=== PATIENT | female | born 1985 | race Caucasian/White ===

== ENCOUNTER 2022-02-13 14:17 | Outpatient (REF) | payer OTHER, SELFPAY ==
[2022-02-13 14:28] LABS: MANUAL DIFF FLAG NO
[2022-02-13 14:37] LABS: Strep A Nucleic Acid Negative (Negative)
[2022-02-13 14:53] LABS: Basophils Percent Auto 0.3 % (0-2); Eosinophils Absolute Auto 0.7 X10*3/uL (0.0-0.4); Eosinophils Percent Auto 6.4 % (0-4); Hematocrit 42.6 % (37.0-47.0); Hemoglobin 13.9 g/dl (12.0-16.0); Imm Gran Abs Auto 0.06 X10*3/uL (0.00-0.03); Imm Gran Pct Auto 0.6 % (0.0-0.4); Lymphocytes Absolute Auto 2.3 X10*3/uL (1.2-4.9); Lymphocytes Percent Auto 22.5 % (20-40); Mean Corpuscular HGB Conc 32.6 g/dl (31.0-35.0); Mean Corpuscular Hemoglobin 28.2 pg (27.0-33.0); Mean Corpuscular Volume 86.4 fL (80.0-98.0); Mean Platelet Volume 8.9 fL (9.4-12.3); Monocytes Absolute Auto 0.8 X10*3/uL (0.1-1.2); Monocytes Percent Auto 7.8 % (2-11); Neutrophils Absolute Auto 6.5 x10*3/uL (2.0-8.3); Neutrophils Percent Auto 62.4 % (45-73); Platelet Count 271 X10*3/uL (160-400); Red Blood Count 4.93 X10*6/uL (4.20-5.50); Red Cell Distribution Width 12.1 % (11.0-16.0); White Blood Count 10.4 X10*3/uL (4.8-10.8)
[2022-02-13 15:11] LABS: Alanine Aminotransferase 66 U/L (0-31); Albumin Level 4.6 g/dL (3.5-5.0); Alkaline Phosphatase 146 U/L (39-117); Anion Gap 12 (12-20); Aspartate Amino Transferase 42 U/L (5-31); Bilirubin Total 0.4 mg/dL (0.0-1.0); Blood Urea Nitrogen 14 mg/dL (9-16); C Reactive Protein 1.72 mg/dL (< or = 0.50); Calcium 9.5 mg/dL (8.4-10.2); Carbon Dioxide 24 mmol/L (22-29); Chloride 110 mmol/L (96-108); Estimated Glomerular Filt Rate > 60; Glucose Random 95 mg/dL (60-115); Potassium 4.2 mmol/L (3.3-5.1); Sodium 142 mmol/L (135-145); Total Protein 7.4 g/dL (6.5-8.0)
[2022-02-13 15:32] LABS: Free T4 (Free Thyroxine) 0.83 ng/dL (0.71-1.85); Thyroid Stimulating Hormone 0.54 uIU/mL (0.32-4.0)
== END 2022-02-13 14:18 | disposition home or self-care (01) ==
LOC: HO.LAB 14:17
PROVIDERS: PCP Internal Medicine; Visit Provider Internal Medicine
DX: R63.5 Abnormal weight gain (principal); E04.1 Nontoxic single thyroid nodule
CPT/HCPCS: 36415; 80053; 84439; 84443; 85025; 86140; 87071; 87651

== ENCOUNTER 2022-02-14 13:00 | Outpatient (REF) | payer OTHER, SELFPAY ==
--- NOTE | ~2022-02-14 | US_ITS ---
EXAMINATION: US THYROID CLINICAL INFORMATION: Thyromegaly COMPARISON: None TECHNIQUE: Linear transducer grayscale and color Doppler examination with attention to the region of the thyroid. FINDINGS: SIZE: Measurements of the thyroid lobes and nodules are given in sagittal, anteroposterior and transverse dimensions respectively. Right Thyroid Lobe: 6.02 x 2.71 x 2.79 cm, volume 23.8 mL. Parenchyma: The gland echotexture is heterogeneous. Thyroid vascularity is normal. Left Thyroid Lobe: 5.48 x 1.54 x 2.05 cm, volume 9.02 mL. Parenchyma: The gland echotexture is homogeneous. Thyroid vascularity is normal. Isthmus: 0.34 cm in maximum AP dimension. Estimated total number of nodules greater than or equal to 1 cm: 2. [employer]ist nodules are described as follows: 1. Location: Right lower pole. Size: 1.9 x 1.8 x 1.7 cm, volume 3.16 mL. Nodule characteristics: Composition: Mixed cystic and solid (1). Echogenicity: Isoechoic (1). Shape: Taller than wide (3). Margins: Smooth (0). Echogenic Foci: None (0). ACR TI-RADS total points: 5 ACR TI-RADS category: 4 2. Location: Right upper. Size: 3.5 x 2.8 x 2.8 cm, volume 14.4 mL. Nodule characteristics: Composition: Solid/almost completely solid (2). Echogenicity: Isoechoic (1). Shape: Not taller than wide (0). Margins: Smooth (0). Echogenic Foci: None (0). ACR TI-RADS total points: 3 ACR TI-RADS category: 3 NODES: No lymphadenopathy is seen in the tissue surrounding the thyroid gland. US/US thyroid IMPRESSION: 1. 2 right thyroid lobe nodules are seen, each of which meets REJI biopsy criteria and is amenable to ultrasound-guided biopsy, if clinically indicated and not already performed. 2. There is an asymmetric goiter, right lobe greater than left. 3. There is heterogeneous thyroid echotexture, which can be associated with thyroiditis. ACR TI-RADS RECOMMENDATION REFERENCE: Ultrasound-guided fine-needle aspiration, followup ultrasound, no further follow up. * TR1 (0 point) and TR 2 (2 points): No FNA or follow up * TR3 (3 points): FNA if more than or equal to 2.5 cm in maximum dimension, followup ultrasound in 1, 3 and 5 years if 1.5 to 2.4 cm in maximum dimension. * TR4 (4-6 points): FNA if more than or equal to 1.5 cm in maximum dimension, followup ultrasound in 1, 2, 3 and 5 years if 1 to 1.4 cm in maximum dimension. * TR5 (more than or equal to 7 points): FNA if more than or equal to 1 cm in maximum dimension, followup ultrasound every year for 5 years if 0.5 to 0.9 cm in maximum dimension. * TR3, TR4 or TR5 nodules that are below the size threshold for follow up receive no follow up.
== END 2022-02-14 13:01 | disposition home or self-care (01) ==
LOC: HO.US 13:00
PROVIDERS: Visit Provider Internal Medicine
DX: E04.2 Nontoxic multinodular goiter (principal)
CPT/HCPCS: 76536

== ENCOUNTER 2022-03-28 11:38 | Emergency (ER) | payer OTHER, SELFPAY ==
--- NOTE | ~2022-03-28 | XR_ITS ---
EXAMINATION: XR LUMBOSACRAL SPINE CLINICAL INFORMATION: Severe low back pain COMPARISON: MRI thoracic spine TECHNIQUE: Three views of the lumbosacral spine. FINDINGS: 5 nonrib-bearing lumbar-type vertebral bodies. No acute visible fracture or dislocation. Slight levocurvature of the mid lumbar spine. Cortical irregularity involving the anterior column of T11 vertebral body greatest at its inferior margin nonspecific though suggesting degenerative changes, increased from prior cross-sectional imaging. Mild multilevel degenerative changes osteophyte formation lower lumbar spine facet arthropathy. Vertebral body heights and disc spaces are otherwise maintained. Posterior elements are intact. Paraspinal soft tissues are unremarkable. Visualized bowel gas is unremarkable. Pelvic phleboliths are noted. XR/XR lumbar spine 2-3V IMPRESSION: 1. No acute visible fracture or dislocation. 2. Slight levocurvature of the mid lumbar spine. Cortical irregularity involving the anterior column of T11 vertebral body greatest at its inferior margin nonspecific though suggesting degenerative changes, increased from prior cross-sectional imaging. 3. Mild multilevel degenerative changes.
[2022-03-28 11:49] VITALS: BP 112/71; PULSE 72; RESP 18; TEMP 37; O2SAT 98; BMI 27.4
[2022-03-28 12:02] VITALS: BP 100/74; PULSE 68; O2SAT 98
--- NOTE | 2022-03-28 12:03 | ED_ITS ---
HPI - Back Pain/Injury General Chief Complaint: Back Pain/Injury Stated Complaint: GENNY BACK PAIN,NO NEW INJURY PER EMS Time Seen by Provider: 03/28/22 11:55 Source: patient and EMS Mode of arrival: EMS Limitations: no limitations History of Present Illness HPI Narrative: 36 yo female presents to the ER for evaluation of severe low back pain worsening over the last couple of days. She reports history of low back pain with history of degenerative disc disease in her lumbar area. She used to go to physical therapy for this and had good results. She states a few days ago she was scrubbing the floors and doing a lot of physical activity with her 3 small children. She has had worsening pain for the last 48 hours. Today she could not even walk because of the pain. She has been taking ibuprofen with minimal relief. She denies any weakness, numbness, tingling of her legs, no bowel or bladder incontinence. She reports the pain is worse when she stands and walks. She is comfortable when she is lying down with her legs flexed. MD elicited complaint: back pain Pertinent past history: prior back pain Timing: constant and progressively worsening Severity: severe Similar Symptoms Previously: Yes Quality: aching and spasming Location: right lower back and left lower back Radiation: none Exacerbating factors: movement, walking and coughing/sneezing Relieving factors: immobilization and supine Context: while lifting, turning/twisting and bending Associated symptoms: denies other symptoms Work related injury: No Related Data Previous Rx's Medication Instructions Recorded cyclobenzaprine 10 mg tablet 10 mg PO TID PRN muscle spasm #10 03/28/22 tabs ibuprofen 600 mg tablet 600 mg PO Q8H PRN pain #10 tabs 03/28/22 lidocaine 5 % topical patch 1 patch topical DAILY #15 ea 03/28/22 oxycodone 5 mg tablet 5 mg PO Q8H PRN pain #6 tabs 03/28/22 Allergies Allergy/AdvReac Type Severity Reaction Status Date / Time No Known Allergies Allergy Unverified 04/20/20 16:40 Review of Systems Review of Systems: Constitutional: No Fever, No Chills ENT/Mouth: No sore throat, No Rhinorrhea, No Swallowing Difficulty Eyes: No Eye Pain, No Swelling, No Redness Cardiovascular: No Chest Pain, No SOB, No Orthopnea, No Edema Respiratory: No Cough, No Sputum, No Wheezing, No dyspnea Gastrointestinal: No Nausea, No Vomiting, No Diarrhea, No abdominal Pain Genitourinary: No Dysuria, No Urinary Frequency, No Hematuria, No incontinence Musculoskeletal: + joint pain, + Myalgias Skin: No Skin Lesions, No rash Neuro: No Weakness, No Numbness, No Dizziness, No Headache Psych: + Anxiety/Panic, No Depression Heme/Lymph: No Bruising, No Lymphadenopathy PMFSH Social History Social History Advance Directives: No Advance Directives Information Provided: No Physical Exam Vital Signs: Vital Signs: Last Vital Signs Temp 97.7 F 03/28/22 13:13 Pulse 73 03/28/22 13:13 Resp 16 03/28/22 13:13 BP 118/76 03/28/22 13:13 Pulse Ox 97 03/28/22 13:13 O2 Del Method 03/28/22 13:13 BMI result Body Mass Index 27.4 Appearance: Alert. Oriented X3. No acute distress. HEENT: normal inspection CVS: Normal heart rate and rhythm. Pulses normal. Respiratory: No respiratory distress. Skin: Skin warm and dry. Normal skin color. Normal skin turgor. No rashes. Back: Midline tenderness along with right and left soft tissue tenderness of the low lumbar area. Positive straight leg raise test bilaterally at approximately 30 degrees. Extremities: Normal inspection x4, normal range of motion Neuro: Oriented X 3. No motor deficit. No sensory deficit. Slow but steady gait. Course Course Course Narrative: 36-year-old female presents to the ER for evaluation of severe low back pain after washing floors and lifting her 3 small children. She has no red flag symptoms of low back pain. She has no neuro deficits. X-rays are pending. Ordered for oxycodone, NSAID, and Tylenol. Will reassess. Reevaluation(s) Reevaluation #1: Pain is improved from when she arrived. There is some degenerative changes on her x-ray, no acute fracture dislocation. With assistance patient was able to be set at the edge of the bed and stood. She had a slow but steady gait. At this time she is stable for discharge home with pain control, outpatient follow- up with her PCP and referral for physical therapy. Stable for DC and return precautions were discussed. Discharge Plan Discharge Clinical Impression: Strain of lumbar region Patient Disposition: Home, Self-Care Instructions: Low Back Strain (ED), Lower Back Exercises (ED) Additional Instructions: Your x-ray did not show any fracture or dislocation. There was some evidence of degenerative changes at multiple levels of your lumbar spine. Recommend following up with her primary care doctor to arrange for physical therapy. No bending, lifting or twisting. Use ice several times per day for 20 minutes at a time for the next 48 hours and then change to heat. Take medications as prescribed to help with pain and discomfort. If your pain worsens, if you develop new numbness, tingling, weakness, loss of function or incontinence call 911 or come back to the ER right away for evaluation. Prescriptions: New cyclobenzaprine 10 mg tablet 10 mg PO TID PRN (Reason: muscle spasm) Qty: 10 0RF lidocaine 5 % adhesive patch,medicated 1 patch topical DAILY Qty: 15 0RF Rx Instructions: leave on most painful area for up to 12 hrs ibuprofen 600 mg tablet 600 mg PO Q8H PRN (Reason: pain) Qty: 10 0RF oxycodone 5 mg tablet 5 mg PO Q8H PRN (Reason: pain) Qty: 6 0RF Rx Instructions: Partial Fill upon patient request. Referrals: Villa Gamboa MD [Primary Care Provider] -
[2022-03-28 13:13] VITALS: BP 118/76; PULSE 73; RESP 16; TEMP 36.5; O2SAT 97
[2022-03-28] MEDS: Acetaminophen 325 MG TABLET 975 MG PO (13:17)
[2022-03-28] MEDS: oxyCODONE HCl Immed Release 5 MG TABLET PO ×2 (13:17→16:18)
[2022-03-28] MEDS: Ketorolac Tromethamine 30 MG/ML VIAL IM (13:17)
== END 2022-03-28 16:52 | disposition home or self-care (01) ==
PROVIDERS: Emergency Provider Emergency Medicine Emergency Medical Services; PCP Internal Medicine
DX: S39.012A Strain of muscle, fascia and tendon of lower back, initial encounter (principal); X50.1XXA Overexertion from prolonged static or awkward postures, initial encounter; Y93.E9 Activity, other interior property and clothing maintenance; Y92.019 Unspecified place in single-family (private) house as the place of occurrence of the external cause; Y99.9 Unspecified external cause status
CPT/HCPCS: 72100; 96372; 99283; 99284; J1885

== ENCOUNTER 2023-04-04 11:41 | Outpatient (REF) | payer OTHER, SELFPAY ==
[2023-04-04 13:00] LABS: Appearance Urine Cloudy; Color Urine Yellow; Glucose Urine UA Negative (Negative); Leukocyte Esterase Urine Small (1+) (Negative); Nitrite Urine Negative (Negative); Specific Gravity - Urine 1.025 (1.005-1.025); UMIC TRIGGER UACC YES; Urine Blood Large (3+) (Negative); Urine Ketones Negative (Negative); Urine Protein Trace mg/dL (Neg-Trace)
[2023-04-04 13:10] LABS: Bacteria Urine 2+ (None Seen); Hyaline Casts Urine 0-2 /LPF (0-2); RBC Urine >20 /HPF (0-2); UACC Culture Trigger YES; WBC Urine 0-5 /HPF (0-5)
== END 2023-04-04 11:42 | disposition home or self-care (01) ==
LOC: HO.LAB 11:41
PROVIDERS: PCP Internal Medicine; Visit Provider Internal Medicine
DX: R30.0 Dysuria (principal)
CPT/HCPCS: 81001; 81003; 87086

== ENCOUNTER 2023-04-14 12:06 | Outpatient (REF) | payer OTHER, SELFPAY ==
[2023-04-14 13:44] LABS: Appearance Urine Clear; Color Urine Yellow; Glucose Urine UA Negative (Negative); Leukocyte Esterase Urine Negative (Negative); Nitrite Urine Negative (Negative); Specific Gravity - Urine 1.015 (1.005-1.025); UMIC TRIGGER UA YES; Urine Blood Moderate (2+) (Negative); Urine Ketones Negative (Negative); Urine Protein Negative (Neg-Trace)
[2023-04-14 13:51] LABS: Bacteria Urine None Seen (None Seen); Hyaline Casts Urine 0-2 /LPF (0-2); RBC Urine >20 /HPF (0-2); Squamous Epithelial Cell Urine 0-2 /HPF (0-2); WBC Urine 0-5 /HPF (0-5)
== END 2023-04-14 12:07 | disposition home or self-care (01) ==
LOC: HO.LAB 12:06
PROVIDERS: PCP Internal Medicine; Visit Provider Internal Medicine
DX: R30.0 Dysuria (principal)
CPT/HCPCS: 81001; 87086

== ENCOUNTER 2023-05-05 13:03 | Outpatient (REF) | payer OTHER, SELFPAY ==
[2023-05-05 14:03] LABS: Appearance Urine Cloudy; Color Urine Yellow; Glucose Urine UA Negative (Negative); Leukocyte Esterase Urine Moderate (2+) (Negative); Nitrite Urine Negative (Negative); PH 7.5 (5.0-9.0); UMIC TRIGGER UA YES; Urine Blood Small (1+) (Negative); Urine Ketones Negative (Negative); Urine Protein Negative (Neg-Trace)
[2023-05-05 14:06] LABS: Bacteria Urine 1+ (None Seen); Hyaline Casts Urine 0-2 /LPF (0-2); RBC Urine >20 /HPF (0-2)
== END 2023-05-05 13:04 | disposition home or self-care (01) ==
LOC: HO.LAB 13:03
PROVIDERS: PCP Internal Medicine; Visit Provider Internal Medicine
DX: R31.9 Hematuria, unspecified (principal)
CPT/HCPCS: 81001; 81003

== ENCOUNTER 2023-06-02 13:58 | Outpatient (REF) | payer OTHER, SELFPAY ==
[2023-06-02 14:16] LABS: MANUAL DIFF FLAG NO
[2023-06-02 15:21] LABS: Basophils Percent Auto 0.5 % (0-2); Eosinophils Absolute Auto 0.3 X10*3/uL (0.0-0.4); Eosinophils Percent Auto 3.8 % (0-4); Hematocrit 41.1 % (37.0-47.0); Hemoglobin 13.8 g/dl (12.0-16.0); Imm Gran Abs Auto 0.03 X10*3/uL (0.00-0.03); Imm Gran Pct Auto 0.3 % (0.0-0.4); Lymphocytes Absolute Auto 1.7 X10*3/uL (1.2-4.9); Lymphocytes Percent Auto 19.6 % (20-40); Mean Corpuscular HGB Conc 33.6 g/dl (31.0-35.0); Mean Corpuscular Hemoglobin 28.4 pg (27.0-33.0); Mean Corpuscular Volume 84.6 fL (80.0-98.0); Mean Platelet Volume 9.2 fL (9.4-12.3); Monocytes Absolute Auto 0.5 X10*3/uL (0.1-1.2); Monocytes Percent Auto 5.2 % (2-11); Neutrophils Absolute Auto 6.1 x10*3/uL (2.0-8.3); Neutrophils Percent Auto 70.6 % (45-73); Platelet Count 251 X10*3/uL (160-400); Red Blood Count 4.86 X10*6/uL (4.20-5.50); Red Cell Distribution Width 11.9 % (11.0-16.0); White Blood Count 8.6 X10*3/uL (4.8-10.8)
[2023-06-02 15:51] LABS: Alanine Aminotransferase 18 U/L (0-31); Albumin Level 4.5 g/dL (3.5-5.0); Alkaline Phosphatase 56 U/L (39-117); Anion Gap 14 (12-20); Aspartate Amino Transferase 17 U/L (5-31); Bilirubin Total 0.5 mg/dL (0.0-1.0); Blood Urea Nitrogen 9 mg/dL (9-16); Calcium 9.4 mg/dL (8.4-10.2); Carbon Dioxide 22 mmol/L (22-29); Chloride 108 mmol/L (96-108); Estimated Glomerular Filt Rate > 60; Glucose Random 114 mg/dL (60-115); Potassium 3.6 mmol/L (3.3-5.1); Sodium 140 mmol/L (135-145); Total Protein 7.4 g/dL (6.5-8.0)
[2023-06-02 16:09] LABS: Free T4 (Free Thyroxine) 0.86 ng/dL (0.71-1.85); Thyroid Stimulating Hormone 0.38 uIU/mL (0.32-4.0)
[2023-06-02 16:52] LABS: Appearance Urine Cloudy; Color Urine Yellow; Glucose Urine UA Negative (Negative); Leukocyte Esterase Urine Small (1+) (Negative); Nitrite Urine Negative (Negative); UMIC TRIGGER UACC YES; Urine Blood Moderate (2+) (Negative); Urine Ketones Negative (Negative); Urine Protein Negative (Neg-Trace)
[2023-06-02 16:57] LABS: Bacteria Urine 1+ (None Seen); Hyaline Casts Urine 0-2 /LPF (0-2); Squamous Epithelial Cell Urine >20 /HPF (0-2); UACC Culture Trigger YES
[2023-06-02 18:01] LABS: Urine Cytology See Pathology rpt
== END 2023-06-02 13:59 | disposition home or self-care (01) ==
LOC: HO.LAB 13:58
PROVIDERS: PCP Internal Medicine; Visit Provider Internal Medicine
DX: R14.0 Abdominal distension (gaseous) (principal); E04.1 Nontoxic single thyroid nodule; R31.9 Hematuria, unspecified
CPT/HCPCS: 36415; 80053; 81001; 84439; 84443; 85025; 87086; 88112

== ENCOUNTER 2023-06-20 13:25 | Outpatient (REF) | payer OTHER, SELFPAY ==
--- NOTE | ~2023-06-20 | US_ITS ---
EXAMINATION: US RETROPERITONEAL COMPLETE (RENAL) CLINICAL INFORMATION: Hematuria. COMPARISON: None available. TECHNIQUE: Real-time imaging of the kidneys and bladder. FINDINGS: RIGHT KIDNEY: 11.3 x 5.1 x 5.4 cm (SAG x AP x TRV). The kidney is normal in size, contour, and echogenicity. Renal cortical thickness is normal. No calculi or focal parenchymal lesions. No hydronephrosis. LEFT KIDNEY: 12.3 x 5.4 x 5.0 cm (SAG x AP x TRV). The kidney is normal in size, contour, and echogenicity. Renal cortical thickness is normal. No focal parenchymal lesions or hydronephrosis. At the upper pole, a 3 mm nonobstructing calculus is seen. At the interpolar aspect, a 2 mm nonobstructing calculus is seen. BLADDER: Well distended and normal. Bilateral ureteral jets are demonstrated. Prevoid bladder volume is 314 mL. Postvoid bladder volume is 145 mL. US/US retroperitoneal comp IMPRESSION: 1. 3 mm and 2 mm nonobstructing left renal calculi are seen. No right renal calculus is seen. No hydronephrosis is noted bilaterally. 2. There is an increased postvoid residual volume.
== END 2023-06-20 13:26 | disposition home or self-care (01) ==
LOC: HO.US 13:25
PROVIDERS: PCP Internal Medicine; Visit Provider Internal Medicine
DX: R31.9 Hematuria, unspecified (principal)
CPT/HCPCS: 76770

== ENCOUNTER 2025-05-15 10:57 | Emergency (ER) | payer OTHER, SELFPAY ==
--- NOTE | ~2025-05-15 | CT_ITS ---
CLINICAL HISTORY: R O kidney stone Exam: CT Abdomen and Pelvis Without IV Contrast Comparison: None Findings: The liver density is homogeneous No biliary abnormalities The spleen is normal in size No pancreatic ductal dilatation No hydronephrosis. A 1 mm nonobstructing left intrarenal calculus is present Normal bowel caliber. Very few colon diverticula are present. The appendix is normal. No free fluid/free air The abdominal aorta caliber is normal Bladder outline is smooth. Uterus is normal in size. There is a 2 cm right ovarian cyst No suspicious skeletal lesions Impression : 2 cm right ovarian cyst, consider nonurgent ultrasound for characterization. A 1 mm left nonobstructing intrarenal calculus is present. No ureteral obstruction. No bladder calculus. This document has been electronically signed by: Hiram Chen MD on 05/15/2025 14:17:04
--- NOTE | ~2025-05-15 | XR_ITS ---
CLINICAL HISTORY: back pain 3 views lumbar spine Comparison: None provided Findings: There is straightening of the normal lumbar lordosis suggesting muscle spasm. No acute fractures or dislocation. There is disc space narrowing at the L4-5 level. There is a large stool burden suggesting constipation. IMPRESSION: 1. There is straightening of the normal lumbar lordosis suggesting muscle spasm. 2. There is a large stool burden suggesting constipation. 3. Degenerating disc with disc space narrowing L4-5. This document has been electronically signed by: Amilcar Flores MD on 05/15/2025 11:51:33
[2025-05-15 11:04] VITALS: BP 125/76; PULSE 78; RESP 20; TEMP 36.4; O2SAT 94; BMI 24.5
--- NOTE | 2025-05-15 11:31 | ED.GENADULT ---
HPI - General Adult General Chief complaint: Back Pain/Injury Stated complaint: back pain Time Seen by Provider: 05/15/25 11:29 Source: patient, RN notes reviewed and old records reviewed Mode of arrival: ambulatory Limitations: no limitations History of Present Illness ED Provider: SANDY Magdaleno HPI narrative: 39 year old female with medical history of nephrolithiasis, presents to the ED due to acute on chronic lumbar back pain. Patient states she has history of lumbar back pain, has been evaluated by PCP and sent to physical therapy which she states made the back pain worse. Patient states this episode of back pain started on 04/23 after walking for approximately 10 hours at the [place] and felt like the pain was improving. Patient reports 1 week ago the lumbar back pain started to radiate down into the buttock and down the posterior R thigh and foot. Reports taking tylenol and ibuprofen without effect. Patient states she has history of rectal prolapse and does need to push when urinating, but reports some pain with pushing. Denies saddle paresthesia, bowel or bladder incontinence, fevers, chills, history of IVDU. MD complaint: Lumbar back pain Related Data Previous Rx's ?Medication ?Instructions ?Recorded cyclobenzaprine 10 mg tablet 10 mg PO TID PRN muscle spasm #10 03/28/22 tabs ibuprofen 600 mg tablet 600 mg PO Q8H PRN pain #10 tabs 03/28/22 lidocaine 5 % topical patch 1 patch topical DAILY #15 ea 03/28/22 oxycodone 5 mg tablet 5 mg PO Q8H PRN pain #6 tabs 03/28/22 cyclobenzaprine 5 mg tablet 5 mg PO BID PRN muscle spasm #10 05/15/25 tabs diazepam 5 mg tablet (Valium) 5 mg PO BEDTIME PRN muscle spasm 05/15/25 #3 tabs ketorolac 10 mg tablet 10 mg PO Q8H PRN pain 3 days #9 05/15/25 tabs prednisone 20 mg tablet 10 mg (1/2 x 20 mg) PO BID #10 tabs 05/15/25 Allergies Allergy/AdvReac Type Severity Reaction Status Date / Time No Known Allergies Allergy Verified 05/15/25 11:07 Review of Systems Review of Systems: CONST: Negative for fever, body aches and chills. HENT: Negative for neck pain/stiffness, headache, congestion, sore throat, swelling. EYES: Negative for discharge/pain or vision changes. RESP: Negative for cough/hemoptysis and shortness of breath. CV: Negative chest pain, difficulty breathing, palpitations. ABD: Negative pain, nausea, vomiting. : Negative increase frequency, dysuria, blood in urine or stool. MUSC: Negative for muscle aches, edema. POS R sided lumbar back pain with radiculopathy SKIN: Negative rash, lesions/sores. NEURO: Negative headache, dizziness, weakness. Yes all other systems are reviewed and are negative [facility] Past Medical History Attestation statement: The following information was validated with the patient. Source: old records reviewed and nursing notes reviewed Physical Exam ED Vital Signs: Vital Signs - 24 hr 05/15/25 11:04 Temperature 97.6 F Pulse Rate 78 Respiratory Rate 20 Blood Pressure 125/76 Pulse Oximetry 94 Oxygen Delivery Method Room Air BMI result Body Mass Index 24.5 GENERAL APPEARANCE: ?AxOx4, generally well-appearing, no acute distress. HEENT: ?NC, AT. MMM. EOMI, clear conjunctiva, oropharynx clear. NECK: ?Supple without lymphadenopathy.? No stiffness or restricted ROM. HEART:? Normal rate and regular rhythm, normal S1/S2, no m/r/g LUNGS:? CTAB, moving air well. No crackles or wheezes are heard. ABDOMEN: ?Soft, nontender, nondistended with good bowel sounds heard. BACK: No CVAT, no obvious deformity. TTP of R sided lumbar paraspinal muscles and over SI joint, positive straight leg test, full ROM intact with extension, flexion and lateral bending, patient able to ambulate without ataxic/antalgic gait. EXTREMITIES: ?Without cyanosis, clubbing or edema. NEUROLOGICAL: ?Grossly nonfocal. Alert and oriented, moving all 4 extremities. Observed to ambulate with normal gait. Skin: ?Warm and dry without any rash. Medications Administered Discontinued Medications Generic Name Dose Route Start Last Admin Trade Name Freq PRN Reason Stop Dose Admin Acetaminophen 975 mg 05/15/25 12:15 05/15/25 12:22 Acetaminophen 325 Mg Tablet PO 05/15/25 12:16 Not Given ONCE ONE Cyclobenzaprine HCl 5 mg 05/15/25 12:15 05/15/25 12:20 Cyclobenzaprine Hcl 5 Mg Tablet PO 05/15/25 12:16 5 mg ONCE ONE Administration Ketorolac Tromethamine 30 mg 05/15/25 12:15 05/15/25 12:20 Ketorolac Tromethamine 30 Mg/Ml Vial IM 05/15/25 12:16 30 mg ONCE ONE Administration Magnesium Citrate 300 ml 05/15/25 15:11 05/15/25 15:14 Magnesium Citrate 300 Ml Solution PO 05/15/25 15:12 300 ml ONCE ONE Administration Medical Decision Making Medical Decision Making MDM Narrative: 39 year old female with medical history of nephrolithiasis, presents to the ED due to acute on chronic lumbar back pain that begain 04/23 after walking the [place]. Pain was improving but 1 week ago pain now in the R side lateral buttock radiating down R posterior thigh and foot. Patient was taking advil/tylenol without effect. Denies saddle paresthesias, bowel/bladder incontinence, history of IVDU, cancer history. VS on initial observation-BP 125/76, pulse rate of 78, respiratory rate of 20, afebrile with oral temp of 97.6?, O2 saturation 94% on room air. On physical exam TTP of R sided lumbar paraspinal muscles and over SI joint, positive straight leg test, full ROM intact with extension, flexion and lateral bending, patient able to ambulate without ataxic/antalgic gait. Plan: Labs, UA, XR lumbar spine Labs without leukocytosis/leukopenia, H&H stable, mild transaminitis with AST of 36, ALT of 47, no electrolyte abnormality. UA reveals 1+ urine blood, trace leukocyte esterase, 6-10 urine RBCs, 3-5 squamous epithelial cells, without urine bacteria. XR lumbar spine reveals straightening of the normal lumbar lordosis suggesting muscle spasm, large stool burden suggesting constipation, degenerative disc disease with disc space narrowing of L4-5 Patient with history of nephrolithiasis, patient with lumbar packpain hard to tell if true CVA tenderness vs lumbar back strain will evaluate further with CT abdomen pelvis. CT abdomen pelvis reveals 2 cm right ovarian cyst, with recommendation for nonurgent ultrasound for characterization, with a 1 mm left nonobstructing intrarenal calculus, without ureteral obstruction. Patient afebrile, without leukocytosis, no history of IVDU, no saddle paresthesias, bowel/bladder incontinence. Patient with lumbar back spam with evidence on XR lumbar spine. Patient will be discharged with 5 day course of 40mg prednisone, 3 days toradol, and 5 day course of flexeril for lumbar back pain. 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 I counseled patient on strict return precautions. patient in agreement with the plan. Differential Diagnosis Differential Diagnoses: The differential diagnosis associated with the presentation includes SEA Discitis Cauda equina Lumbar radiculopathy UTI Nephrolithiasis Admission/Observation Consideration of admission/observation: Escalation of care including admission/observation considered Lab Data MDM Lab Attestation statement: I reviewed the patient's lab results. 05/15/25 12:34 05/15/25 12:34 Labs: Lab Results 05/15/25 05/15/25 Range/Units 12:29 12:34 WBC 8.0 (4.8-10.8) X10*3/uL RBC 4.81 (4.20-5.50) X10*6/uL Hgb 13.7 (12.0-16.0) g/dl Hct 40.9 (37.0-47.0) % MCV 85.0 (80.0-98.0) fL MCH 28.5 (27.0-33.0) pg MCHC 33.5 (31.0-35.0) g/dl RDW 11.6 (11.0-16.0) % Plt Count 238 (160-400) X10*3/uL MPV 8.6 L (9.4-12.3) fL Immature Gran % (Auto) 0.2 (0.0-0.4) % Neut % (Auto) 66.1 (45-73) % Lymph % (Auto) 23.9 (20-40) % [place] % (Auto) 5.2 (2-11) % Eos % (Auto) 3.9 (0-4) % Baso % (Auto) 0.7 (0-2) % Lymph # (Auto) 1.9 (1.2-4.9) X10*3/uL [place] # (Auto) 0.4 (0.1-1.2) X10*3/uL Eos # (Auto) 0.3 (0.0-0.4) X10*3/uL Baso # (Auto) 0.1 (0.0-0.2) X10*3/uL Abs Immat Gran (auto) 0.02 (0.00-0.03) X10*3/uL Absolute Neuts (auto) 5.3 (2.0-8.3) x10*3/uL Absolute Nucleated RBC 0.000 (0.0-0.012) X10*3/uL Nucleated RBC % (auto) 0.0 (0.0-0.2) /100WBC Sodium 139 (135-145) mmol/L Potassium 4.0 (3.3-5.1) mmol/L Chloride 110 H (96-108) mmol/L Carbon Dioxide 22 (22-29) mmol/L Anion Gap 11 L (12-20) BUN 17 H (9-16) mg/dL Creatinine 0.64 (0.5-1.4) mg/dL Estim Creat Clear Calc 97.6 Estimated GFR > 60 Random Glucose 87 (60-115) mg/dL Calcium 9.1 (8.4-10.2) mg/dL Magnesium 2.1 (1.6-2.6) mg/dL Total Bilirubin 0.7 (0.0-1.0) mg/dL AST 36 H (5-31) U/L ALT 47 H (0-31) U/L Alkaline Phosphatase 57 (39-117) U/L Total Protein 7.2 (6.5-8.0) g/dL Albumin 4.9 (3.5-5.0) g/dL Urine Color Yellow Urine Appearance Clear Urine pH 5.5 (5.0-9.0) Ur Specific [place] 1.010 (1.005-1.025) Urine Protein Negative (Neg-Trace) mg/dL Urine Glucose (UA) Negative (Negative) mg/dL Urine Ketones Trace (Negative) mg/dL Urine Blood Small (1+) H (Negative) Urine Nitrite Negative (Negative) Ur Leukocyte Esterase Trace H (Negative) Urine RBC 6-10 H (0-2) /HPF Urine WBC 0-5 (0-5) /HPF Ur Squamous Epith Cells 3-5 (0-2) /HPF Urine Bacteria None Seen (None Seen) Hyaline Casts 0-2 (0-2) /LPF Independent Interpretation I performed an independent interpretation of an: Plain X-Ray and CT Scan Interpretation: I personally interpreted the XR lumbar spine which revealed moderate stool burden, without fracture or dislocation, I agree with the radiologist's interpretation Radiology Impression Discussion of test interpretation with radiology: I have reviewed the radiologist's reading. Radiologist Impression: XR lumbar spine Findings: There is straightening of the normal lumbar lordosis suggesting muscle spasm. No acute fractures or dislocation. There is disc space narrowing at the L4-5 level. There is a large stool burden suggesting constipation. IMPRESSION: 1. There is straightening of the normal lumbar lordosis suggesting muscle spasm. 2. There is a large stool burden suggesting constipation. 3. Degenerating disc with disc space narrowing L4-5. This document has been electronically signed by: Amilcar Flores MD on 05/15/2025 11:51:33 Dictated By: Amilcar Flores MD Signed By: <Electronically signed by Amilcar Flores MD in [place]> 05/15/[address] abdomen and pelvis Findings: The liver density is homogeneous No biliary abnormalities The spleen is normal in size No pancreatic ductal dilatation No hydronephrosis. A 1 mm nonobstructing left intrarenal calculus is present Normal bowel caliber. Very few colon diverticula are present. The appendix is normal. No free fluid/free air The abdominal aorta caliber is normal Bladder outline is smooth. Uterus is normal in size. There is a 2 cm right ovarian cyst No suspicious skeletal lesions Impression : 2 cm right ovarian cyst, consider nonurgent ultrasound for characterization. A 1 mm left nonobstructing intrarenal calculus is present. No ureteral obstruction. No bladder calculus. This document has been electronically signed by: Hiram Chen MD on 05/15/2025 14:17:04 Dictated By: Hiram Chen MD Signed By: <Electronically signed by Hiram Chen MD in [place]> 05/15/25 1418 External Record Review External record reviewed: Inpatient record, Office record and Outpatient record Chronic Conditions Patient?s care impacted by: Other (History of nephrolithiasis) Discharge Plan Discharge Clinical Impression: Lumbar radiculopathy, Constipation Patient Disposition: Home, Self-Care Instructions: Constipation (DC), Acute Low Back Pain (ED) Additional Instructions: You were evaluated in the ED due to lumbar back pain. Your blood work today was reassuring as you did not have a significant elevation or decrease in your white blood cell count indicative of infection, you had a mild increase in your liver function tests with an AST of 36, and an ALT of 47, this is non-emergent however you should discuss these findings with your primary care doctor. The x-ray of your lumbar spine revealed large stool burden indicative of constipation, some straightening of the normal lumbar musculature suggesting muscle spasm, and degenerative disc changes with disc space narrowing of L4-5. The CT of your abdomen and pelvis revealed a 2 cm right ovarian cyst, with a 1 mm left nonobstructing kidney stone. I am prescribing a 5 day course of flexeril which is a muscle relaxer, prednisione which is a steroid for inflammation, 3 day course of toradol and valium for back pain. Additionally, please take 500mg of tylenol every 6 hours to manage pain. Your Xray revealed stool burden, you are being prescribed magnesium citrate for constipation. Please drink half of the bottle, if no bowel movement in 6 hours drink the other half and wait for bowel movement. Please follow up with your PCP on the findings mentioned above and to ensure resolution of back pain and constipation. Please return to the ED if you experience fevers over 100.4?, worsening back pain, inability to ambulate, numbness and tingling of your inner thighs, bowel/bladder incontinence, or any new/worsening/concerning symptoms. Prescriptions: New prednisone 20 mg tablet 10 mg PO BID Qty: 10 0RF ketorolac 10 mg tablet 10 mg PO Q8H PRN (Reason: pain) 3 Days Qty: 9 0RF cyclobenzaprine 5 mg tablet 5 mg PO BID PRN (Reason: muscle spasm) Qty: 10 0RF diazepam [Valium] 5 mg tablet 5 mg PO BEDTIME PRN (Reason: muscle spasm) Qty: 3 0RF No Action cyclobenzaprine 10 mg tablet 10 mg PO TID PRN (Reason: muscle spasm) Qty: 10 0RF lidocaine 5 % adhesive patch,medicated 1 patch topical DAILY Qty: 15 0RF Rx Instructions: leave on most painful area for up to 12 hrs ibuprofen 600 mg tablet 600 mg PO Q8H PRN (Reason: pain) Qty: 10 0RF oxycodone 5 mg tablet 5 mg PO Q8H PRN (Reason: pain) Qty: 6 0RF Rx Instructions: Partial Fill upon patient request. Interventions: ED Discharge Assessment Last Done: 05/15/25 15:58 Discharge Date/Time: 05/15/25 16:00 Print Language: Romansh
[2025-05-15 12:37] LABS: MANUAL DIFF FLAG NO
[2025-05-15 12:40] LABS: Appearance Urine Clear; Glucose Urine UA Negative (Negative); PH 5.5 (5.0-9.0); Specific Gravity - Urine 1.010 (1.005-1.025); UMIC TRIGGER UACC YES
[2025-05-15 12:41] LABS: Hematocrit 40.9 % (37.0-47.0); Hemoglobin 13.7 g/dl (12.0-16.0); Imm Gran Abs Auto 0.02 X10*3/uL (0.00-0.03); Imm Gran Pct Auto 0.2 % (0.0-0.4); Lymphocytes Absolute Auto 1.9 X10*3/uL (1.2-4.9); Mean Corpuscular HGB Conc 33.5 g/dl (31.0-35.0); Mean Corpuscular Hemoglobin 28.5 pg (27.0-33.0); Mean Corpuscular Volume 85.0 fL (80.0-98.0); NRBC Abs Auto 0.000 X10*3/uL (0.0-0.012); NRBC Pct Auto 0.0 /100WBC (0.0-0.2); Platelet Count 238 X10*3/uL (160-400); Red Blood Count 4.81 X10*6/uL (4.20-5.50); White Blood Count 8.0 X10*3/uL (4.8-10.8)
[2025-05-15 13:04] LABS: Alanine Aminotransferase 47 U/L (0-31); Albumin Level 4.9 g/dL (3.5-5.0); Alkaline Phosphatase 57 U/L (39-117); Anion Gap 11 (12-20); Aspartate Amino Transferase 36 U/L (5-31); Blood Urea Nitrogen 17 mg/dL (9-16); Calcium 9.1 mg/dL (8.4-10.2); Carbon Dioxide 22 mmol/L (22-29); Chloride 110 mmol/L (96-108); Creatinine Clr Calc Pharmacy 97.6; Estimated Glomerular Filt Rate > 60; Magnesium 2.1 mg/dL (1.6-2.6); Potassium 4.0 mmol/L (3.3-5.1); Sodium 139 mmol/L (135-145); Total Protein 7.2 g/dL (6.5-8.0)
[2025-05-15 15:58] VITALS: BP 120/71; PULSE 72; RESP 17; TEMP 36.4; O2SAT 95
== END 2025-05-15 16:00 | disposition home or self-care (01) ==
PROVIDERS: Emergency Provider Emergency Medicine; PCP Student in an Organized Health Care Education/Training Program
DX: M54.16 Radiculopathy, lumbar region (principal); K59.00 Constipation, unspecified; M54.50 Low back pain, unspecified
CPT/HCPCS: 36415; 72100; 74176; 80053; 81001; 83735; 85025; 96372; 99284; J1885

== ENCOUNTER → 2025-05-15 11:20 | Outpatient (BNV) | payer OTHER, SELFPAY | PROVIDERS: Emergency Provider Emergency Medicine; PCP Student in an Organized Health Care Education/Training Program; Visit Provider Radiology Diagnostic Radiology | DX: N20.0 Calculus of kidney (principal); N83.201 Unspecified ovarian cyst, right side; M51.360 Other intervertebral disc degeneration, lumbar region with discogenic back pain only; M48.061 Spinal stenosis, lumbar region without neurogenic claudication | CPT/HCPCS: 72100; 74176 ==

== ENCOUNTER 2025-05-26 12:46 | Outpatient (REF) | payer OTHER, SELFPAY ==
[2025-05-26 13:46] LABS: MANUAL DIFF FLAG NO
[2025-05-26 14:42] LABS: Hematocrit 43.5 % (37.0-47.0); Hemoglobin 14.4 g/dl (12.0-16.0); Imm Gran Abs Auto 0.10 X10*3/uL (0.00-0.03); Imm Gran Pct Auto 1.1 % (0.0-0.4); Lymphocytes Absolute Auto 3.2 X10*3/uL (1.2-4.9); Mean Corpuscular HGB Conc 33.1 g/dl (31.0-35.0); Mean Corpuscular Hemoglobin 28.7 pg (27.0-33.0); Mean Corpuscular Volume 86.8 fL (80.0-98.0); NRBC Abs Auto 0.000 X10*3/uL (0.0-0.012); NRBC Pct Auto 0.0 /100WBC (0.0-0.2); Platelet Count 293 X10*3/uL (160-400); Red Blood Count 5.01 X10*6/uL (4.20-5.50); White Blood Count 9.1 X10*3/uL (4.8-10.8)
[2025-05-26 15:07] LABS: Microalbum/Creatinine Ratio Ur 6.3 ug/mg cr (<30)
[2025-05-26 15:08] LABS: Alanine Aminotransferase 87 U/L (0-31); Albumin Level 4.9 g/dL (3.5-5.0); Alkaline Phosphatase 65 U/L (39-117); Anion Gap 13 (12-20); Aspartate Amino Transferase 57 U/L (5-31); Blood Urea Nitrogen 16 mg/dL (9-16); Calcium 9.1 mg/dL (8.4-10.2); Carbon Dioxide 25 mmol/L (22-29); Chloride 107 mmol/L (96-108); Cholesterol 263 mg/dL (<200); Estimated Glomerular Filt Rate > 60; HDL Cholesterol 60 mg/dL (>40); Potassium 4.0 mmol/L (3.3-5.1); Sodium 141 mmol/L (135-145); Total Protein 7.5 g/dL (6.5-8.0); Triglycerides 226 mg/dL (<150)
[2025-05-27 04:03] LABS: Syphilis Screen Nonreactive (Nonreactive)
[2025-05-27 04:25] LABS: HBc Num1 0.07 S/CO (0.00-0.79); HBsAGNum1 0.34 S/CO (0.00-0.99); Hepatitis A Antibody IgM 0.18 Index (0-0.79); Hepatitis B Surface Antigen Negative (Negative); ~Hepatitis A Antibody IgM Nonreactive (Nonreactive)
[2025-05-27 04:50] LABS: HBS Num1 1.23 mIU/mL (0-7.99); HIV Num 1 0.07 S/CO (0.00-0.99); ~HepC Num1 0.08 S/CO (0.00-0.79); ~Hepatitis B Surface Antibody NONREACTIVE (Nonreactive); ~Hepatitis C Antibody Nonreactive (Nonreactive)
== END 2025-05-26 12:47 | disposition home or self-care (01) ==
LOC: HO.LAB 12:46
PROVIDERS: PCP Student in an Organized Health Care Education/Training Program; Visit Provider Student in an Organized Health Care Education/Training Program
DX: Z76.89 Persons encountering health services in other specified circumstances (principal); M48.062 Spinal stenosis, lumbar region with neurogenic claudication; M54.16 Radiculopathy, lumbar region; K59.09 Other constipation; L70.9 Acne, unspecified; R74.8 Abnormal levels of other serum enzymes; N83.201 Unspecified ovarian cyst, right side; Z79.899 Other long term (current) drug therapy
CPT/HCPCS: 36415; 80053; 80061; 82043; 82306; 82570; 83036; 84443; 85025; 86704; 86706; 86709; 86780; 86803; 87340; 87389; 96127; 99202

== ENCOUNTER 2025-05-26 12:46 | Outpatient (AMB) | payer OTHER, SELFPAY ==
--- NOTE | 2025-05-26 12:51 | MHC.PC.OV ---
Vital Signs 05/26/25 13:01 Height 5 ft 2.76 in Weight 151 lb BMI 27.0 BP 128/78 Respiration 18 Pulse 97 Pulse Source Pulse Oximeter Temp 99.5 F Temp Source Temporal Artery Scan Pulse Oximetry (%) 98 Oxygen Delivery Method Room Air Intake Visit Reasons: New Patient / PE / LUZ MARIA / Dr Gamboa Direct Care Staffer Required: No Accompanied by: Self / Same As Patient Allergies No Known Allergies Allergy (Verified 05/26/25 12:52) Medication List - Last Reconciled 05/26/25 by Riaz Lambert MD clindamycin-benzoyl peroxide 1.2 %(1 % base) -5 % topical cyclobenzaprine 10 mg PO ONCE PRN econazole nitrate 1% appl topical ibuprofen 600 mg PO Q8H PRN ketoconazole 2% topical mirabegron ER (Myrbetriq) 25 mg PO DAILY PRN spironolactone 50 mg PO BID tretinoin 0.1% appl topical Tobacco use date assessed: 05/26/25 Dental Screening Dental Screen Date: 05/26/25 Did you have a dental visit in the last 12 months?: Yes Did you have a dental problem in the last 6 months where you did not have access to dental care?: No Was dental information given to patient?: Patient has dentist HPI HPI Comments History of Present Illness Details The patient is a 39-year-old female presenting with back pain accompanied by radiating pain to the right leg and numbness. The back pain initially began three years ago, resulting in an emergency room visit when her back gave out while carrying her child. At that time, she was diagnosed with degenerative disc disease and treated with medication, which provided relief within a week. She has experienced periodic back pain since, which typically resolves after a few days of rest. Approximately 10 days prior to this visit, the back pain returned, characterized by its severity, affecting her ability to walk, and causing numbness in the right foot. Despite attempting physical therapy in the past, she did not complete the regimen as it exacerbated her symptoms. Recent imaging from the emergency department reportedly showed significant constipation. The patient also reports challenges with bowel movements, sometimes occurring only once or twice weekly. She attributes some of her abdominal discomfort to constipation, which was confirmed on radiographic imaging. Additional issues include an ovarian cyst being monitored by her FLEET COORDINATOR, with an upcoming ultrasound scheduled. The patient's medical history includes acne, for which she was prescribed spironolactone, although she has not initiated the medication due to concerns about potential effects during . Medical History: - Degenerative Disc Disease - Constipation - Acne Surgical History: - Partial thyroidectomy in August of last year for a benign thyroid nodule Medications: - Spironolactone 50 mg twice daily for acne (not yet started) - Cyclobenzaprine as needed for back pain Family History: - Mother and sister with hypothyroidism - Family history of some cancer, but not in immediate family members Diagnostic Results: - X-rays from emergency department indicating significant constipation - Liver enzymes were minimally elevated Social History: - Former smoker with a [id number] history; quit 5 years ago - Mother of three children, [id number] mom - No alcohol or illicit drug use - Reports severe constipation with bowel movements occurring once or twice weekly [facility] Medical History (Updated 05/26/25 @ 13:28 by Riaz Lambert MD) Ovarian cyst Elevated liver enzymes Acne Constipation Lumbar stenosis Social History Housing: House Patient Tobacco Use Status: Former Tobacco user Years Smoked: 20 years-quit 5 years ago e-Cigarette/Vaping Use: Never Used service: No Current occupational status: unemployed Questionnaire PHQ-9 Over the last 2 weeks, how often have you been bothered by any of the following problems? 1. Little interest or pleasure in doing things: not at all 2. Feeling down, depressed, or hopeless: not at all 3. Trouble falling or staying asleep, or sleeping too much: not at all 4. Feeling tired or having little energy: not at all 5. Poor appetite or overeating: not at all 6. Feeling bad about yourself - or that you are a failure or have let yourself or your family down: not at all 7. Trouble concentrating on things, such as reading the newspaper or watching television: not at all 8. Moving or speaking so slowly that other people could have noticed. Or the opposite - being so fidgety or restless that you have been moving around a lot more than usual: not at all 9. Thoughts that you would be better off or of hurting yourself in some way: not at all Total score: 0 Depression Screening Interpretation: Negative Depression Screening Done: Yes 32913 - PHQ-9 Billing: Yes Source: Developed by Drs. Mynor Monroe, Ajit Chávez and colleagues, with an educational fátima from [employer]. Thrive Questionnaire Date Thrive assessed: 05/26/25 I am a: Patient What is your living situation today?: I have a steady place to live Within the past 12 months, did the food you bought not last and you didn't have the money to get more?: Never true Within the past 12 months, did you worry whether your food would run out before you got money to buy more?: Never true Do you have trouble paying for medicines?: No Do you have trouble getting transportation to medical appointments?: No Do you have trouble paying your heating and electricity bill?: No Do you have trouble taking care of your child, family member or friend?: No Do you have trouble with day-to-day activities such as bathing, preparing meals, shopping, managing finances, etc.?: No Are you currently unemployed and looking for a job?: No Are you interested in more education?: No THRIVE Score: 0 AUDIT C Alcohol Use Questionnaire (AUDIT-C) 1. How often do you have a drink containing alcohol?: Never 3. How often do you have six or more drinks on one occasion?: Never Total Score: 0 Score Reviewed/Action Taken: Yes MARCEL-7 AMB Questionnaire MARCEL-7 Date MARCEL - 7 assessed: 05/26/25 Feeling nervous, anxious, or on edge: 0 = Not at all Not being able to stop or control worryin = Not at all Worrying too much about different things: 0 = Not at all Trouble relaxin = Not at all Being so restless that it is hard to sit still: 0 = Not at all Becoming easily annoyed or irritable: 0 = Not at all Feeling afraid as if something awful might happen: 0 = Not at all Total MARCEL-7 score (0-4 normal; 5-9 mild; 10-14 moderate; 15-21 severe): 0 Source: Developed by Drs. Mynor Monroe, Ajit Chávez and colleagues, with an educational fátima from [employer]. MARCEL-7 Assessment Billing MARCEL-7 Assessment Tool: MARCEL-7 Assessment 38163 Review of Systems Narrative - Musculoskeletal: Reports back pain, radiating leg pain with numbness in right foot - Gastrointestinal: Reports constipation with infrequent bowel movements - Neurological: Reports numbness in right foot and pain radiating from back to leg - Endocrine: Denies any symptoms of PCOS All systems reviewed & are unremarkable except as reviewed in HPI and above Physical exam (Primary Care) Vital Signs: Last Vital Signs Temp 99.5 F 05/26/25 13:01 Pulse 97 05/26/25 13:01 Resp 18 05/26/25 13:01 BP 128/78 05/26/25 13:01 Pulse Ox 98 05/26/25 13:01 Oxygen Delivery Method Room Air 05/26/25 13:01 BMI result Body Mass Index 27.0 Tobacco/Smoking Status: Tobacco use Status Tobacco use date assessed 05/26/25 05/26/25 12:52 Patient Tobacco Use Status Former Tobacco user 05/26/25 13:04 e-Cigarette/Vaping Use Never Used 05/26/25 13:04 Depression Screening Interpretation: Negative Narrative General: Alert and oriented, Well nourished, No acute distress. Eye: Pupils are equal, round and reactive to light, Intact accommodation, Extraocular movements are intact, Normal conjunctiva, Vision unchanged. HENT: Normocephalic, Atraumatic, Tympanic membranes are clear, Normal hearing, Oral mucosa is moist, No pharyngeal erythema, Ear canals patent. Respiratory: Lungs CTA bilaterally, No wheeze, Respirations are non-labored. Cardiovascular: Regular rate, Regular rhythm, S1 auscultated, S2 auscultated, No murmur, Good pulses equal in all extremities, Normal peripheral perfusion, No edema. Gastrointestinal: Soft, Non-tender, Non-distended, Normal bowel sounds, No organomegaly. Musculoskeletal: Limited range of motion, Decreased strength in the right leg, Tenderness in the lower back, No swelling, No deformity, Slow gait. Integumentary: Warm, Dry, [place], Intact. Neurologic: Alert, Oriented, Normal sensory, Normal motor function, No focal defects, Cranial Nerves II-XII are grossly intact, Decreased deep tendon reflexes in RLE Psychiatric: Cooperative, Appropriate mood & affect, Normal judgment. Coding Level of Care Code New Pt Level 4 (36334) Diagnoses Spinal stenosis of lumbar region with neurogenic claudication M48.062 Neurogenic claudication status: with neurogenic claudication Other constipation K59.09 Constipation type: other constipation type Lumbar radiculopathy M54.16 Acne, unspecified acne type L70.9 Acne type: unspecified acne Elevated liver enzymes R74.8 Cyst of right ovary N83.201 Laterality: right Additional Codes PHQ-9 - 63619 - PHQ-9 Billing: Yes ([id number]) MARCEL-7 Assessment Billing - MARCEL-7 Assessment Tool: MARCEL-7 Assessment 94519 ([id number]) Assessment & Plan Assessment & Plan (1) Lumbar stenosis: Comment: - Persistent pain in low back with imaging showing disc space narrowing on x-ray. With pain radiating down her right leg and numbness. She has failed physical therapy despite attempting a twice and has debilitating pain resulting in limited ambulation. - MRI of the lumbar spine ordered to better evaluate the current condition. - Initiated gabapentin for neuropathic pain. - Provided prescriptions with adjustments for cyclobenzaprine for pain management. Educated on using this medication throughout the day. Code(s): M48.061 - Spinal stenosis, lumbar region without neurogenic claudication Category: Medical Qualifiers: Neurogenic claudication status: with neurogenic claudication Qualified Code(s): M48.062 - Spinal stenosis, lumbar region with neurogenic claudication (2) Constipation: Comment: - Imaging obtained in the emergency room demonstrated large fecal burden. Patient does report only emptying her bowels once or twice a week - Will start with a one time Golytlye purge and then start on daily miralax Code(s): K59.00 - Constipation, unspecified Category: Medical Qualifiers: Constipation type: other constipation type Qualified Code(s): K59.09 - Other constipation (3) Lumbar radiculopathy: Comment: - Persistent pain in low back with imaging showing disc space narrowing on x-ray. With pain radiating down her right leg and numbness. She has failed physical therapy despite attempting a twice and has debilitating pain resulting in limited ambulation. - MRI of the lumbar spine ordered to better evaluate the current condition. - Initiated gabapentin for neuropathic pain. - Provided prescriptions with adjustments for cyclobenzaprine for pain management. Educated on using this medication throughout the day. Code(s): M54.16 - Radiculopathy, lumbar region Category: Medical (4) Acne: Comment: - Discussed use of spironolactone, emphasizing avoidance during . - Plan for dermatological follow-up regarding the topical and systemic treatment plan. Code(s): L70.9 - Acne, unspecified Category: Medical Qualifiers: Acne type: unspecified acne Qualified Code(s): L70.9 - Acne, unspecified (5) Elevated liver enzymes: Comment: - Elevated liver enzymes on recent lab work, etiology unclear therefore we will obtain a hepatitis panel to rule out any etiology and if remains elevated we will consider liver ultrasound Code(s): R74.8 - Abnormal levels of other serum enzymes Category: Medical (6) Ovarian cyst: Comment: - Imaging completed in the emergency room demonstrated a right ovarian cyst. Per patient she has scheduled to have an ultrasound with her OBGYN Code(s): N83.209 - Unspecified ovarian cyst, unspecified side Category: Medical Qualifiers: Laterality: right Qualified Code(s): N83.201 - Unspecified ovarian cyst, right side Plan: Health Maintenance: - Ordered a hepatitis panel to assess elevated liver function. - Arranged for an MRI to address neurological symptoms properly. - Advised Pelvic ultrasound for ovarian cyst monitoring. - Instructed on managing constipation with lifestyle modifications. Patient was informed and verbally consented to the use of an ambient scribe for clinic note documentation during this visit. Plan We discussed her diagnosis of degenerative disc disease, noting the importance of imaging a thorough assessment with an MRI. I emphasized mediating current neuropathic symptoms with gabapentin and optimizing pain management with adjusted cyclobenzaprine. We reviewed her constipation-related discomfort, proposing regular MiraLax use and an initial bowel cleaning regimen if necessary. We moved on to acne treatment with spironolactone, discussing care in reproductive planning. In reviewing her elevated liver enzymes, a hepatitis evaluation was recommended before proceeding to ultrasound evaluation. We also confirmed the plan for ongoing ovarian cyst evaluation with her FLEET COORDINATOR specialist. I reiterated that the insurance approval process might impact imaging timeline and encouraged communication via patient portal for test results or issues. Orders: Orders Complete Blood Count Auto Diff Today Z76.89 - Persons encountering health services in other specified circumstances Hemoglobin A1c Today Z76.89 - Persons encountering health services in other specified circumstances Hepatitis A,B,C Profile Today Z76.89 - Persons encountering health services in other specified circumstances HIV Ab/Ag Today Z76.89 - Persons encountering health services in other specified circumstances Vitamin D 25-OH Total Today Z76.89 - Persons encountering health services in other specified circumstances Microalbumin, Random (w Creat) Today Z76.89 - Persons encountering health services in other specified circumstances MR lumbar spine wo con Today M48.061 - Spinal stenosis, lumbar region without neurogenic claudication Comprehensive Met. Panel Today Z76.89 - Persons encountering health services in other specified circumstances Lipid Panel Today Z76.89 - Persons encountering health services in other specified circumstances Syphilis Screen Today Z76. - Persons encountering health services in other specified circumstances TSH reflex Free T4 Today Z76. - Persons encountering health services in other specified circumstances Medications: New peg 3350-electrolytes 236-22.74-6.74 -5.86 gram (Golytely) until fecal effluent is clear 2,000 mL PO ONCE 2,000 mL 0RF polyethylene glycol 3350 (Miralax) 17 grams PO BID 850 grams 0RF gabapentin 100 mg PO TID 90 caps 5RF 30 days cyclobenzaprine 5 mg PO TID 90 tabs 5RF 30 days Discontinued lidocaine 5% leave on most painful area for up to 12 hrs Discontinued Reason: Patient Completed Course 1 patch topical DAILY 15 ea 0RF oxycodone Partial Fill upon patient request. Discontinued Reason: Patient Completed Course 5 mg PO Q8H PRN 6 tabs 0RF pain prednisone Discontinued Reason: Patient Completed Course 10 mg (1/2 x 20 mg) PO BID 10 tabs 0RF cyclobenzaprine Discontinued Reason: Patient Completed Course 5 mg PO BID PRN 10 tabs 0RF muscle spasm ketorolac Discontinued Reason: Patient Completed Course 10 mg PO Q8H 3 days PRN 9 tabs 0RF pain Patient Instructions: - Take gabapentin as prescribed to manage nerve pain, and continue with adjusted cyclobenzaprine prescription for muscle spasms. - Use MiraLax daily to improve bowel regularity; adjust usage based on results. - Consider potential side effects of spironolactone if initiated; avoid while taking it. - Attend scheduled ultrasound for ovarian cyst evaluation. - Wait for insurance approval of your MRI; expect updates through the patient portal. - Follow up urgently if symptoms worsen or new concerns arise.
[2025-05-26 13:01] VITALS: BP 128/78; PULSE 97; RESP 18; TEMP 37.5; O2SAT 98; BMI 27.0
--- OUTSIDE RECORDS SUMMARY | 2025-05-26 15:56 | XMS_ITS ---
Author Name [facility] Organization Unknown History of Medication Use Medication Directions Dispensed Refills Start Date End Date Stat us cyclobenzaprine 05/19/2025 activ e Encounters Encounter Type Encounter Reason Primary Diagnosis Location Date Ambulatory TBE Other interverte bral disc degeneration, lumbar region without mention of lumbar back pain or lower extremity pain [facility] 05/19/2025 Care Team Organization Name Specialty Phone Email Start Date End Da te [facility] 05/19/2025 [facility] 05/19/2025
== END 2025-05-26 13:31 | disposition home or self-care (01) ==
LOC: HO.HMCHD 12:47
PROVIDERS: PCP Student in an Organized Health Care Education/Training Program; Visit Provider Student in an Organized Health Care Education/Training Program
DX: M48.062 Spinal stenosis, lumbar region with neurogenic claudication (principal); K59.09 Other constipation; M54.16 Radiculopathy, lumbar region; L70.9 Acne, unspecified; R74.8 Abnormal levels of other serum enzymes; N83.201 Unspecified ovarian cyst, right side

== ENCOUNTER → 2025-06-23 18:49 | Outpatient (BNV) | payer OTHER, SELFPAY | PROVIDERS: PCP Student in an Organized Health Care Education/Training Program; Visit Provider Radiology Diagnostic Radiology | DX: M48.061 Spinal stenosis, lumbar region without neurogenic claudication (principal) | CPT/HCPCS: 72148 ==

== ENCOUNTER 2025-06-23 18:50 | Outpatient (REF) | payer OTHER, SELFPAY ==
--- NOTE | ~2025-06-23 | MR_ITS ---
EXAMINATION: MR LUMBAR SPINE WITHOUT CONTRAST CLINICAL INFORMATION: M 48.061. Spinal stenosis, lumbar region without neurogenic claudication. COMPARISON: Correlated to x-ray dated May 15, 2025 and March 28, 2022. TECHNIQUE: MRI of the lumbar spine was obtained using routine sequences without contrast. FINDINGS: Left rib-bearing vertebra labeled T12. No bone marrow STIR signal abnormality. Anterior inferior deformity vertebral body of T11. Decreased intervertebral disc height and signal, T11-12, L4-5 and L5-S1. Schmorl node in the anterior inferior vertebral body of L4. Modic type II endplate changes at L5-S1. Normal alignment. Loss of the physiologic lordosis. Conus medullaris ends at the inferior endplate of T12 with normal signal. T11-12: No disc herniation. No neuroforamina stenosis. T12-L1: No disc herniation. No neuroforamina stenosis. L1-2: No disc herniation. No neuroforamina stenosis. L2-3: No disc herniation. No neuroforamina stenosis. L3-4: Broad-based disc bulging. Facet joint and ligamentum flavum hypertrophy. Reduced AP diameter of the thecal sac. No neuroforamina stenosis. L4-5: Central/right subarticular disc herniation compressing the right L5 nerve root on its lateral recess. Bilateral facet joint and ligamentum flavum hypertrophy. Bilateral neuroforamina narrowing. Reduced AP diameter of the thecal sac secondary to herniated disc. L5-S1: Broad-based disc bulging abutting the S1 nerve roots on the lateral recesses. Bilateral facet joint hypertrophy. Reduced AP diameter of the thecal sac and the neural foramina. No prevertebral compartment hematoma, mass or fluid collection. MR/MR lumbar spine wo con IMPRESSION: Central/right subarticular disc herniation, L4-5 compressing the right L5 nerve root and reduces in central spinal canal. Old anterior inferior deformity T11 resulting in mild reverse curvature. Loss physiologic lumbar lordosis. Electronically signed by: Niraj Robert MD 06/24/2025 06:52 AM EST
== END 2025-06-23 18:51 | disposition home or self-care (01) ==
LOC: HO.MRI 18:50
PROVIDERS: PCP Student in an Organized Health Care Education/Training Program; Visit Provider Student in an Organized Health Care Education/Training Program
DX: M48.061 Spinal stenosis, lumbar region without neurogenic claudication (principal)
CPT/HCPCS: 72148

== ENCOUNTER 2025-06-29 13:49 | Outpatient (AMB) | payer OTHER, SELFPAY ==
--- NOTE | 2025-06-29 14:10 | A.SPINEOV_ITS ---
Vital Signs 06/29/25 14:11 Height 5 ft 3 in Weight 150 lb BMI 26.6 Intake Visit Reasons: LBP Intake Note: Ms. Ramírez is here today c/o low back pain and numbness down the legs. Information Assurance Analyst Required: No Allergies No Known Allergies Allergy (Verified 06/29/25 14:11) Physical Exam Vital Signs: BMI result Body Mass Index 26.6 Assessment & Plan Assessment & Plan (1) Lumbar radiculopathy: Code(s): M54.16 - Radiculopathy, lumbar region Category: Medical Plan Dear Dr. Lambert, Thank you for referring Ms. Ramírez to our office today. She is a pleasant 40-year-old female who comes in today for evaluation of low back pain and shooting pains into her right lower extremity. She reports a somewhat longstanding history of back pain, first originating after her the of her first child who is now 7 years old. She states she has had intermittent flare- ups of her back pain over the years, and was evaluated by her primary care physician and the emergency department for this issue in the past. Typically her back pain has self-resolved, with either medications or injections such as Toradol. Today, she reports that around April 23 she was walking around the [place], and after returning back home began experiencing a flare-up of her low back pain. Within about a week after this she began experiencing fairly severe shooting pain down her right lower extremity. When describing the pain she states that it starts in her low back shoots into her right posterior buttocks travels down the lateral right thigh and into the lateral gastrocnemius. Unfortunately as the weeks progressed she began experiencing fairly significant numbness and weakness of her right lower extremity, and states that she has been walking with a ?limp.? If she walks for prolonged periods of time despite the pain she begins to hunch over fairly significantly. She was subsequently evaluated by your office and sent for MRI imaging, which showed a disc herniation at L4-5. She was then referred to our office for evaluation/surgical recommendations. She states that she has been to physical therapy for this issue, but did not find it particularly helpful and states that it only caused her additional pain. She has attempted several different medications in an attempt to treat this. She trialed a course of prednisone, which she reports only gave her transient relief while taking the medication. She is currently prescribed gabapentin and Flexeril to try and help mitigate her pain, however she reports this is not very effective. In addition to this she has been excessively taking [id number] medications to try and control her pain. She reports she has been taking 1000 mg of Tylenol every 4 hours around the clock since symptom onset, and has frequently taken Tylneol like this in the past for back pain flare ups. This is a likely contributing factor to her elevated liver enzymes based on most recent laboratory values. She denies any bowel/bladder incontinence or saddle anesthesia. She does report fairly significant numbness primarily near the anterior tibialis on the right side, and also reports diffuse weakness of her right leg compared to the left. PMH: Partial thyroidectomy, constipation, ovarian cyst, hyperlipidemia, vitamin-D deficiency. Elevated liver enzymes (AST 57, ALT 87 as of 05/26). Social hx: The patient does not smoke, reports no alcohol use. She has been using cannabis, however only recently began using this for the 1st time in her life to help her sleep at night as she awakes in pain frequently since symptom onset in April. Medications: See InnaVirVax list. Allergies: NKDA. Physical exam: The patient has about 4/5 strength diffusely throughout the right lower extremity compared to the left. She has hypoesthesia to light touch which she describes as ?numbness? over the right anterior tibialis and gastrocnemius compared to the left. She walks with a an antalgic gait, slightly hunched over favoring the left-hand side. She has 3+ hyperreflexia diffusely on exam, but (-) clonus and (-) Babinski sign. (+) Bilateral straight leg raise, worse on right hand side. Imaging review: MRI of the lumbar spine completed here at [facility] shows fairly significant degenerative disc disease at L4-5, and L5-S1. Much more significant at L4-5, where there is a paracentric disc herniation oriented toward the right-hand side. This is causing effacement of the ventral surface of the thecal sac and severe bilateral lateral recess stenosis, right side worse than left. Impression: Ms. Ramírez is a pleasant 40-year-old female who comes in today for evaluation of low back pain and severe shooting pain down her right lower extremity. She has had waxing/waning back pain for many years, however has never had leg pain that accompanied this. She identifies an inciting incident of excessive physical activity walking around the [place] all day on 2024. In addition to her right lower extremity pain she has subjective numbness/weakness of the right lower extremity which is replicated objectively during examination. Thankfully this is not progressive in nature and sounds like it has been essentially the same since initial onset of her disc herniation. Clinically the patient is suffering from severe lumbar radiculopathy on the right-hand side secondary to the disc herniation seen at L4-5, and has neurological deficits which accompany this. My attending neurosurgeon Dr. Mann was in clinic with me today, and was available to see the patient with me after initial evaluation. He is willing to offer the patient a minimally invasive right-sided L4-L5 microdiskectomy to treat her severe right-sided leg pain. We explained the procedure at length with the patient in office today utilizing our spine models, and answered all questions that she has related to surgery to the best of our ability. We also explained to the patient that we can not predict if her numbness/weakness will subside as a result of surgery, however surgical intervention is her best chance at regaining function and sensation in her right lower extremity. The patient wishes to proceed with surgery. The patient was given risk and benefits of surgery including but not limited to infection, hematoma, nerve injury, durotomy, weakness, bowel/bladder injury, persistent pain, persistent numbness / weakness. We also discussed the option to continue with conservative treatment and patient wishes to proceed with surgery. They are aware they should stop NSAIDs 7 days prior to surgery. All questions were answered to the best of our ability. If there is anything about this patients medical history that we have overlooked or concerns you have about us proceeding with surgery we would appreciate any input you can offer. Thank you for allowing us to care for your patient. The total time spent with this visit with this patient was 45 minutes reviewing history, physical exam, MRI imaging review, and implementation of treatment plan or further diagnostic testing Jitendra Mann MD,PhD [facility] Coding Level of Care Code New Pt Level 4 (90280) Diagnoses Lumbar radiculopathy M54.16
[2025-06-29 14:11] VITALS: BMI 26.6
== END 2025-06-29 15:23 | disposition home or self-care (01) ==
LOC: HO.HNS 13:49
PROVIDERS: PCP Student in an Organized Health Care Education/Training Program; Referring Provider Student in an Organized Health Care Education/Training Program; Visit Provider Physician Assistant
DX: M54.16 Radiculopathy, lumbar region (principal)
CPT/HCPCS: 99204

== ENCOUNTER → 2025-06-29 13:49 | Outpatient (BNVA) | payer OTHER, SELFPAY | PROVIDERS: PCP Student in an Organized Health Care Education/Training Program; Referring Provider Student in an Organized Health Care Education/Training Program; Visit Provider Physician Assistant | DX: M54.16 Radiculopathy, lumbar region (principal) | CPT/HCPCS: 99202 ==

== ENCOUNTER 2025-07-07 06:53 | Day surgery (SDC) | payer OTHER, SELFPAY ==
--- NOTE | 2025-07-04 12:37 | HO.ANESPROP2 ---
Documented by User: Svetlana Rodriguez NP 07/06/25 09:01 HPI - Anesthesia Eval Consult details Narrative: 40 yr old female for right L4-5 MicroLumbar discectomy s/p partial thyroidectomy 08/2024, had PONV, will order scop patch PMFSH Active Problems Active Problems: All Active Problems Ovarian cyst (Acute) Elevated liver enzymes (Acute) Acne (Acute) Constipation (Acute) Lumbar stenosis (Acute) Past Medical History Medical History Numbness Elevated cholesterol Back pain Vitamin D deficiency Hyperlipidemia Ovarian cyst Elevated liver enzymes Acne Constipation Lumbar stenosis Family History Family history of problems with anesthesia: No Surgical History Surgical History Hx of partial thyroidectomy (~08/2024) History of Problems with Anesthesia: No Social History Social History Housing: House Are you a primary child care leader to a significant other at home: No Do you presently have visiting nurse or other home services: No Patient Tobacco Use Status: Former Tobacco user Years Smoked: 20 years-quit 5 years ago e-Cigarette/Vaping Use: Never Used Use of substances other than those prescribed or required for medical reasons: No Have you been hit, kicked, punched, or otherwise hurt by someone within the past year? If so, by whom?: No Are you DNR?: No Advance Directives: No Advance Directives Information Provided: Yes Advance Directives on File: No Patient : No : No service: No Current occupational status: unemployed Meds Allergies Allergy/AdvReac Type Severity Reaction Status Date / Time No Known Allergies Allergy Verified 06/29/25 14:11 Home Medications ?Medication ?Instructions ?Recorded ?Confirmed ?Last Taken ?Type tretinoin 0.1 % topical cream 1 appl topical DAILY 05/26/25 07/06/25 07/06/25 History acetaminophen 500 mg capsule 1,000 mg PO BID PRN Pain 07/06/25 07/06/25 07/06/25 History cyclobenzaprine 5 mg tablet 5 mg PO TID PRN Muscle Spasm 07/06/25 07/06/25 07/06/25 History Exam Pertinent Lab Results Pertinent Lab Results: Laboratory Tests 05/26/25 13:44 WBC 9.1 RBC 5.01 Hgb 14.4 Hct 43.5 Plt Count 293 Sodium 141 Potassium 4.0 BUN 16 Creatinine 0.79 Airway Loose/Missing/Broken Teeth: No and Upper (6 veneers ) Assessment and Plan Final Anesthetic Review Family History of Problems with Anesthesia: No History of Problems with Anesthesia: No Documented by User: Roxana Rosenthal MD 07/07/25 07:41 PMFSH Past Medical History Medical History Numbness Elevated cholesterol Back pain Vitamin D deficiency Hyperlipidemia Ovarian cyst Elevated liver enzymes Acne Constipation Lumbar stenosis Surgical History Surgical History Hx of partial thyroidectomy (~08/2024) Social History Social History Housing: House Are you a primary child care leader to a significant other at home: No Do you presently have visiting nurse or other home services: No Patient Tobacco Use Status: Former Tobacco user Years Smoked: 20 years-quit 5 years ago e-Cigarette/Vaping Use: Never Used Use of substances other than those prescribed or required for medical reasons: No Have you been hit, kicked, punched, or otherwise hurt by someone within the past year? If so, by whom?: No Are you DNR?: No Advance Directives: No Advance Directives Information Provided: Yes Advance Directives on File: No Patient : No : No service: No Current occupational status: unemployed Meds Allergies Allergy/AdvReac Type Severity Reaction Status Date / Time No Known Allergies Allergy Verified 06/29/25 14:11 Home Medications ?Medication ?Instructions ?Recorded ?Confirmed ?Last Taken ?Type tretinoin 0.1 % topical cream 1 appl topical DAILY 05/26/25 07/06/25 07/06/25 History acetaminophen 500 mg capsule 1,000 mg PO BID PRN Pain 07/06/25 07/06/25 07/06/25 History cyclobenzaprine 5 mg tablet 5 mg PO TID PRN Muscle Spasm 07/06/25 07/06/25 07/06/25 History Exam Airway Mallampati Class: II TM Dist: >3cm Neck ROM: Full Heart: rrr Lungs: cta Assessment and Plan Assessment Anesthesia Assessment: Anesthesia Plan Discussed and Chart Reviewed Final Anesthetic Review NPO: Yes ASA Class: II Final Preanesthetic Review: No Changes in Pt Med Stat, Meds/Allgs Chart Reviewed, Consent Obtained/Reviewed and Anes Risks/Benef Reviewed Patient Risk: Low Procedure Risk: Intermediate Anesthetic Plan Anesthetic Plan: GA and Agree w/ Assess. and Plan Disposition: Standard PACU
[2025-07-06 08:47] VITALS: BMI 26.6
[2025-07-07] VITALS (14 sets, daily range): BP systolic 100–123; BP diastolic 44–86; PULSE 65–107; RESP 12–20; TEMP 36.1–36.4; O2SAT 95–100
--- NOTE | ~2025-07-07 | FL_ITS ---
EXAMINATION: XR FLUOROSCOPY WITH IMAGES CLINICAL INFORMATION: Right L4-5 microdiscectomy COMPARISON: None available. TECHNIQUE: Fluoroscopy time: 4 seconds DAP: 1.1 mGycm2 Images: 1 FINDINGS: Fluoroscopy provided in the operating room. There is a surgical instrument projected posteriorly at the level of the inferior L4 vertebral body. FL/FL guidance in OR IMPRESSION: Fluoroscopy provided in the operating room. See surgical report for details. Electronically signed by: Mina Shelby MD 07/07/2025 04:33 PM AARON
--- NOTE | 2025-07-07 07:04 | MHC.SHP ---
Pre-Procedural Eval Section A - 24 Hr Update-Section A only Date of Service: 07/07/25 The patient is an INPATIENT: No Changes since office visit: No Cold of Flu in the past 2 weeks, No New Medical Problems, No Changes in Medication and No Patient answered all questions The patient has been examined within 24 hours of the surgical procedure. The History & Physical has been completed within 30 days and I have reviewed it.: No Section B - Complete if H&P > 30 days Chief Complaint: Other intervertebral disc displacement, lumbar Allergies: Allergies Allergy/AdvReac Type Severity Reaction Status Date / Time No Known Allergies Allergy Verified 06/29/25 14:11 Review of Systems Sugical H&P ROS: Negative: Constitution, Cardiovascular, Respiratory, Neurological, Psychiatric, Hem-Onc, Allergic/Immunologic, Gastrointestinal, Genitourinary, Musculoskeletal, Integumentary, Endocrine and Eyes/Ears/Nose/Throat Exam Surgical H&P Exam: Normal: HEENT, Normal: Heart, Normal: Lungs, Normal: Extremities, Normal: Abdomen, Normal: Skin and Normal: Neurological (Awake alert oriented x3) Plan Diagnosis/Plan: Unchanged Right L4-5 microdiskectomy Time Spent With Patient Time: Total time managing care of this patient today __4__ minutes.
--- NOTE | 2025-07-07 07:05 | PM.DS ---
DS: Providers Provider Date of Service: 07/07/25 Date of discharge: 07/07/25 Primary care physician: Riaz Lambert MD Admitting clinician: Layo Mann DS: Diagnosis Discharge Diagnosis (1) Lumbar stenosis: Status: Acute DS: Summary Time Attestation Discharge Coordination Time (in mins): 7 Quality: Safe Use of Opioids Does Pt have an Active Cancer Diagnosis on the Problem List?: No Quality: Stroke Does the patient have a stroke diagnosis?: No Physical Exam Vital Signs: Vital Signs: BMI result Body Mass Index 26.6 Discharge Plan Discharge Patient Disposition: Home, Self-Care Referrals: Riaz Lambert MD [Primary Care Provider, Internal Medicine] - 1 Week Discharge Medications: New docusate sodium [Colace] 100 mg capsule 100 mg PO BID Qty: 20 0RF oxycodone 5 mg tablet 5 mg PO Q4H PRN (Reason: pain) Qty: 14 0RF Rx Instructions: Partial Fill upon patient request. Continued cholecalciferol (vitamin D3) 1,250 mcg (50,000 unit) tablet 1,250 mcg PO QWEEK 84 Days Qty: 12 0RF gabapentin 300 mg capsule 300 mg PO TID 30 Days Qty: 90 0RF cyclobenzaprine 5 mg tablet 5 mg PO TID PRN (Reason: Muscle Spasm) acetaminophen 500 mg Capsule 1,000 mg PO BID PRN (Reason: Pain) tretinoin 0.1 % cream 1 appl topical DAILY Discharge Orders: Discharge Order (Routine); Ordered 07/07/25 Ordered By: Riki Quinones Diet: Advance to usual diet Activity on Discharge: As tolerated Activity Restrictions/Additional Instructions: After your spinal surgery we ask you to observe the following restrictions/guidelines: Activity: It is normal to feel some discomfort as you increase your activity, but that will improve with time. We ask you avoid heavy lifting or acitivities that cause pain. As a general rule, 8lbs is a safe limit for lifting right after surgery. Walk as much as you feel comfortable but not to exhaustion. You will feel extra tired the first few days after surgery. Stay well hydrated. It is OK to walk up and down stairs You may return to driving when you are off narcotics (such as vicodin, oxycodone, dilaudid, etc), and you are back to normal functional capacity. If you have any concerns please check with office before driving. Return to work is specific to each patient and each surgery, so please speak with your doctor/PA at first follow up. Please bring paperwork such as FMLA at that time if you need it filled out. Medications: For optimum pain control, it is best to start with a combination of 500 mg of Tylenol every 4 hours with 600 mg of Motrin every 8 hours, and use narcotics as needed in between for breakthrough pain. We will give you a short supply of narcotics after surgery (usually one weeks worth). If you need more please call the office but do not use more than prescribed. You will need to give our office 48 hours notice if you need narcotics refilled and we do not fill narcotics on weekends or evenings. If you are on a narcotic, it is a good idea to take a stool softener such as colace or senna to avoid constipation If you take blood thinner such as aspirin, Plavix, Coumadin, Effient, Eliquis etc for conditions such as Afib, DVT, Pulmonary embolus, coronary disease, stents etc please speak with your surgeon about specific details as to when you can resume these medications. Follow up: Please call the office, , after surgery to arrange a 3 week follow up for wound check. Wound Care: You may remove your dressing on the first day after surgery. ?You may ?leave open to air. Please do not remove the steri strips underneath. they will fall off on their own in one week. IT IS NORMAL FOR THE WOUND TO OOZE OR BE BLOODY FOR A FEW DAYS AFTER SURGERY. ?IF THIS HAPPENS JUST PLACE NEW DRESSING OVER IT TO AVOID STAINING CLOTHES. You may shower on post op day # 1 We ask that you do not let the water soak the wound. If it does get wet, just towel dry lightly. Please do not scrub your incision or place any type of chemical/ointment on the wound. No tub baths, pools or jacuzzis for one month. If you have any leaking or redness from your wound, or fevers, please call office Print Language: Setswana
[2025-07-07] MEDS: Lactated Ringers 1,000 ML 100 ML IVCONT (07:09)
[2025-07-07 07:25] LABS: UPreg QC Valid YES
--- NOTE | 2025-07-07 07:36 | PC.NURSE ---
pt hunched over when walking
--- NOTE | 2025-07-07 09:44 | P.OP_ITS ---
Operative Note Operative Note Date of Service: 07/07/25 Narrative: Preoperative diagnosis: Right L5 lumbar radiculopathy due to disc herniation Postoperative diagnosis: Same Procedure: Right L4-5 lumbar microdiskectomy with microscope Surgeon: Layo Mann MD, PhD Architectural Designer: naima Tucker This 40-year-old female suffering from severe right lumbar radiculopathy. MRI shows a large disc herniation compressing the L5 nerve root. The patient was offered a lumbar microdiskectomy to decompress the nerve root. The procedure complications were explained. The patient was consented. The patient was brought to the operating room and endotracheally intubated. The patient was turned in a prone position on the Joselito frame. Prepping and draping was done followed by time-out. A mid lumbar incision was made followed by release of the paravertebral muscles on the right side to expose the L4-5 interspace. An intraoperative x-rays obtained to confirm the correct level. The microscope was brought in. A L4 laminotomy was done followed by opening of the flavum ligament. The L5 nerve root was identified and retracted medially to expose the L4-5 disc space. An annulotomy was done. A large piece of disc herniation was sitting medial from the L5 nerve root. I carefully release it from the nerve root and eventually I was able to remove a 1.5 x 1 cm piece of disc herniation with a pituitary. The disc space was inspected and any residual disc fragments were removed. This resulted in an excellent decompression of the L5 nerve root. Hemostasis was done. The microscope was removed. Marcaine was injected intramuscularly.The incision was closed in two layers. Steri-Strips used to approximate the incision. An op-site were taken there was used to cover the incision. All sponge and needle counts were correct. Patient was extubated and transported in stable condition to recovery room. this procedure was done with the aid of a physician ortho assistant who performed the initial exposure until the microscope was brought in and performed the closure of the incision. Anesthesia: General Blood loss: 10 mL Complications: None Specimen: None Surgical time: 40 minutes Disposition: Discharge home
[2025-07-07] MEDS: oxyCODONE HCl Immed Release 5 MG TABLET PO (11:03)
== END 2025-07-07 11:30 | disposition home or self-care (01) ==
PROVIDERS: Nurse Practitioner; PCP Student in an Organized Health Care Education/Training Program; Visit Provider Neurological Surgery
PROC: (CPT 63030; principal; 2025-07-07 09:30)
DX: M51.16 Intervertebral disc disorders with radiculopathy, lumbar region (principal); M54.50 Low back pain, unspecified; M79.651 Pain in right thigh; R20.1 Hypoesthesia of skin; R26.2 Difficulty in walking, not elsewhere classified; F12.90 Cannabis use, unspecified, uncomplicated; E89.0 Postprocedural hypothyroidism; R74.8 Abnormal levels of other serum enzymes; E78.5 Hyperlipidemia, unspecified; E55.9 Vitamin D deficiency, unspecified; K59.00 Constipation, unspecified; R26.89 Other abnormalities of gait and mobility
CPT/HCPCS: 63030; 81025; J0131; J0690; J1100; J1171; J1885; J2003; J2250; J2405; J2704; J3010

== ENCOUNTER → 2025-07-07 06:53 | Outpatient (BNV) | payer OTHER, SELFPAY | PROVIDERS: PCP Student in an Organized Health Care Education/Training Program; Visit Provider Physician Assistant | DX: M48.062 Spinal stenosis, lumbar region with neurogenic claudication (principal) | CPT/HCPCS: 63030; 99499 ==